=== PATIENT | male | born 1980 | race Caucasian/White ===

== ENCOUNTER → 2016-03-30 | Outpatient (CLI) | payer OTHER ==
--- NOTE | 2016-03-30 22:48 | REP ---
LUMBAR SPINE, FIVE VIEWS: HISTORY: Back pain. There is no acute fracture or subluxation. The L2-3 through L4-5 intervertebral discs are decreased in height consistent with disc degeneration. Osteophytes are present on L2 and L3. The facet joints are normal in appearance. IMPRESSION: Degenerative change as described above. Signed by Yuriy Flower MD 03/31/2016 08:20 A
== END ==
LOC: M WUC 18:50
PROVIDERS: ATTEND Physician Assistant
DX: M54.5 Low back pain (principal)

== ENCOUNTER → 2016-07-29 | Outpatient (REF) | payer OTHER ==
[~2016-07-29] MED LIST: KEFL500C7 PO; NAPR500T PO; TERB250T57 PO
== END ==
LOC: M LAB REF 15:00
PROVIDERS: ATTEND Surgery
DX: D17.21 Benign lipomatous neoplasm of skin and subcutaneous tissue of right arm (principal); D17.23 Benign lipomatous neoplasm of skin and subcutaneous tissue of right leg

== ENCOUNTER 2016-08-01 10:51 | Emergency (ER) | payer OTHER ==
[~2016-08-01] VITALS: Ht 177.8 cm; Wt 103.0 kg
[2016-08-01 10:52] VITALS: BP 144/81
[2016-08-01] MEDS ORDERED: TERB250T57 PO (11:01)
[2016-08-01] MEDS ORDERED: CEPHALEXIN 500 MG CAP PO ONE (11:30)
[2016-08-01] MEDS ORDERED: KEFL500C7 PO (11:38)
[2016-08-01] MEDS ORDERED: NAPR500T PO (11:38)
== END 2016-08-01 11:51 | disposition home or self-care (01) ==
LOC: M ED 11:30
DX: T81.31XA Disruption of external operation (surgical) wound, not elsewhere classified, initial encounter (principal); Y92.9 Unspecified place or not applicable; Y99.9 Unspecified external cause status; Y93.9 Activity, unspecified; X58.XXXA Exposure to other specified factors, initial encounter; D17.23 Benign lipomatous neoplasm of skin and subcutaneous tissue of right leg

== ENCOUNTER → 2017-09-22 | Outpatient (REF) | payer OTHER ==
[2017-09-22 12:58] LABS: BASO % 0.5 % (0.0-1.0); EOS # 0.1 10^3/uL (0.0-0.50); EOS % 1.2 % (0.0-3.0); HEMOGLOBIN 14.9 g/dl (13.5-17.5); IMMATURE GRANULOCYTE % 1.2 % (0-3.0); LYMPH # 1.8 10^3/uL (1.5-4.5); LYMPH % 30.6 % (24.0-44.0); MEAN CORPUSCULAR HEMOGLOBIN 30.2 pg (27.0-33.0); MEAN CORPUSCULAR HGB CONC 34.7 g/dl (32.0-36.5); MONO # 0.5 10^3/uL (0.0-0.8); MONO % 8.9 % (0.0-5.0); NEUTROPHILS # 3.3 10^3/uL (1.8-7.7); NEUTROPHILS % 57.6 % (36.0-66.0); PLATELET COUNT, AUTOMATED 296 10^3/uL (150-450); RED BLOOD COUNT 4.94 10^6/uL (4.30-6.10); RED CELL DISTRIBUTION WIDTH 12.1 % (11.5-14.5); WHITE BLOOD COUNT 5.8 10^3/uL (4.0-10.0)
[2017-09-22 13:41] LABS: ALBUMIN 3.5 GM/DL (3.2-5.2); ALBUMIN/GLOBULIN RATIO 0.92 (1.00-1.93); ALKALINE PHOSPHATASE 67 U/L (45-117); ALT/SGPT 46 U/L (12-78); ANION GAP 7 MEQ/L (8-16); AST/SGOT 20 U/L (7-37); BILIRUBIN,TOTAL 0.4 MG/DL (0.2-1.0); BLOOD UREA NITROGEN 15 MG/DL (7-18); CALCIUM LEVEL 8.4 MG/DL (8.5-10.1); CARBON DIOXIDE LEVEL 30 MEQ/L (21-32); CHLORIDE LEVEL 107 MEQ/L (98-107); CREATININE FOR GFR 0.99 MG/DL (0.70-1.30); GLOMERULAR FILTRATION RATE > 60.0 (>60); GLUCOSE, FASTING 95 MG/DL (70-100); LIPASE 130 U/L (73-393); POTASSIUM SERUM 4.4 MEQ/L (3.5-5.1); SODIUM LEVEL 144 MEQ/L (136-145); TOTAL PROTEIN 7.3 GM/DL (6.4-8.2)
== END ==
LOC: M LAB REF 12:44
DX: R11.0 Nausea (principal); R10.9 Unspecified abdominal pain; R19.7 Diarrhea, unspecified

== ENCOUNTER → 2018-08-04 | Outpatient (REF) | payer OTHER ==
[~2018-08-04] MED LIST changes: +KEFL500C17 PO; -KEFL500C7 PO; +NAPR-837 PO; -NAPR500T PO; +TERB250T12 PO; -TERB250T57 PO
[2018-08-04 13:16] LABS: BASO % 0.8 % (0.0-1.0); EOS # 0.1 10^3/uL (0.0-0.50); EOS % 1.5 % (0.0-3.0); HEMATOCRIT 43.7 % (42.0-52.0); HEMOGLOBIN 14.8 g/dl (13.5-17.5); LYMPH # 1.5 10^3/uL (1.5-4.5); LYMPH % 37.6 % (24.0-44.0); MEAN CORPUSCULAR HEMOGLOBIN 29.8 pg (27.0-33.0); MEAN CORPUSCULAR HGB CONC 33.9 g/dl (32.0-36.5); MEAN CORPUSCULAR VOLUME 88.1 fl (80.0-96.0); MONO # 0.4 10^3/uL (0.0-0.8); MONO % 11.2 % (0.0-5.0); NEUTROPHILS # 1.9 10^3/uL (1.8-7.7); NEUTROPHILS % 48.6 % (36.0-66.0); PLATELET COUNT, AUTOMATED 220 10^3/uL (150-450); RED BLOOD COUNT 4.96 10^6/uL (4.30-6.10); WHITE BLOOD COUNT 3.9 10^3/uL (4.0-10.0)
[2018-08-04 13:49] LABS: ALBUMIN 3.8 GM/DL (3.2-5.2); ALT/SGPT 30 U/L (12-78); BLOOD UREA NITROGEN 14 MG/DL (7-18); CALCIUM LEVEL 9.1 MG/DL (8.5-10.1); CARBON DIOXIDE LEVEL 27 MEQ/L (21-32); CHLORIDE LEVEL 107 MEQ/L (98-107); CHOLESTEROL LEVEL 175 MG/DL (<200); CHOLESTEROL RISK RATIO 3.571 (<5); CREATININE FOR GFR 1.18 MG/DL (0.70-1.30); GLOMERULAR FILTRATION RATE > 60.0 (>60); GLUCOSE, FASTING 90 MG/DL (70-100); HDL CHOLESTEROL 49 MG/DL (>40); LDL CHOLESTEROL 115 MG/DL (<100); NON-HDL-C 126 MG/DL; POTASSIUM SERUM 4.1 MEQ/L (3.5-5.1); SODIUM LEVEL 139 MEQ/L (136-145); TOTAL PROTEIN 7.4 GM/DL (6.4-8.2); TRIGLYCERIDES LEVEL 56 MG/DL (<150)
== END ==
LOC: M LAB REF 12:25
PROVIDERS: ATTEND Family Medicine Addiction Medicine
DX: Z00.01 Encounter for general adult medical examination with abnormal findings (principal)

== ENCOUNTER 2022-04-01 16:27 | Inpatient (IN) | payer OTHER, SELFPAY ==
[~2022-04-01] VITALS: Ht 177.8 cm; Wt 105.8 kg
[~2022-04-01 16:27] MED LIST changes: -TERB250T12 PO; +TERB250T91 PO
[2022-04-01] MEDS ORDERED: ISOVUE-370 76% 100ML VIAL As Ordered ONE (16:55)
[2022-04-01 17:11] LABS: BASO % 0.5 % (0.0-1.0); EOS # 0.1 10^3/uL (0.0-0.5); HEMOGLOBIN 14.2 g/dl (13.5-17.5); LYMPH # 2.5 10^3/uL (1.5-5.0); LYMPH % 34.1 % (24.0-44.0); MEAN CORPUSCULAR HEMOGLOBIN 30.3 pg (27.0-33.0); MEAN CORPUSCULAR VOLUME 91.9 fl (80.0-96.0); MONO # 0.6 10^3/uL (0.0-0.8); MONO % 8.6 % (2.0-8.0); NEUTROPHILS # 4.1 10^3/uL (1.5-8.5); NEUTROPHILS % 55.5 % (36.0-66.0); PLATELET COUNT, AUTOMATED 250 10^3/uL (150-450); RED BLOOD COUNT 4.68 10^6/uL (4.30-6.10); WHITE BLOOD COUNT 7.4 10^3/uL (4.0-10.0)
[2022-04-01] MEDS ORDERED: NS 1,000 ML IV ONE (17:15)
[2022-04-01] MEDS: HYDROMORPHONE HCL 0.5 MG/ 0.5 ML SYRINGE IV PRN ×2 (17:21→18:14)
[2022-04-01 17:24] LABS: INR 0.95; PROTHROMBIN TIME 12.9 SECONDS (12.5-14.5)
[2022-04-01 17:25] LABS: PARTIAL THROMBOPLASTIN TIME 22.9 SECONDS (24.8-34.2)
[2022-04-01 17:26] LABS: ALBUMIN 3.8 G/DL (3.2-5.2); BILIRUBIN,DIRECT 0.1 MG/DL (<0.4); BILIRUBIN,TOTAL 0.4 MG/DL (0.3-1.2); MB/CK RELATIVE INDEX 0.72 (< OR =4); TOTAL PROTEIN 6.8 G/DL (5.7-8.2)
[2022-04-01 17:39] LABS: RSV AMPLIFICATION NEGATIVE (NEGATIVE)
[2022-04-01] MEDS ORDERED: KETOROLAC 30 MG/ML 1ML VIAL IV ONE (18:05)
[2022-04-01] MEDS ORDERED: HOME MED LIST COMPLETE! XX SCH (18:35)
[2022-04-01] MEDS ORDERED: ONDANSETRON 4MG 2ML VIAL As Ordered ONE (18:54)
[2022-04-01] MEDS ORDERED: ONDANSETRON 4MG 2ML VIAL IV ONE (19:05)
[2022-04-01] MEDS ORDERED: MORPHINE 4 MG/ML 1ML VIAL IV PRN (20:05)
[2022-04-01] MEDS ORDERED: MOM 30ML SUSPENSION UDC PO PRN (20:05)
[2022-04-01] MEDS: NORCO, ANEXSIA 5/325MG TABLET (HYDROcodone/ACETAMINOPHEN) PO PRN (20:29)
[2022-04-01] MEDS: SENOKOT S TAB PO SCH (21:00)
[2022-04-01] MEDS: KETOROLAC 30 MG/ML 1ML VIAL IV PRN (21:41)
[2022-04-01] MEDS: MORPHINE 2 MG/ML 1ML VIAL IV PRN (22:43)
[2022-04-02] MEDS: NORCO, ANEXSIA 5/325MG TABLET (HYDROcodone/ACETAMINOPHEN) PO PRN ×3 (02:10→18:56)
[2022-04-02 08:22] LABS: HEMATOCRIT 41.5 % (42.0-52.0); HEMOGLOBIN 13.8 g/dl (13.5-17.5); MEAN CORPUSCULAR HEMOGLOBIN 30.6 pg (27.0-33.0); MEAN CORPUSCULAR HGB CONC 33.3 g/dl (32.0-36.5); PLATELET COUNT, AUTOMATED 200 10^3/uL (150-450); RED BLOOD COUNT 4.51 10^6/uL (4.30-6.10); WHITE BLOOD COUNT 11.3 10^3/uL (4.0-10.0)
[2022-04-02] MEDS: PANTOPRAZOLE 40MG TAB (PROTONIX) PO SCH (08:49)
[2022-04-02] MEDS: SENOKOT S TAB PO SCH ×2 (08:57→19:52)
[2022-04-02 09:00] LABS: ALBUMIN 3.2 G/DL (3.2-5.2); ALKALINE PHOSPHATASE 50 U/L (46-116); ALT/SGPT 96 U/L (7.0-40); AST/SGOT 83 U/L (<34); BILIRUBIN,TOTAL 0.6 MG/DL (0.3-1.2); BLOOD UREA NITROGEN 18 MG/DL (9-23); CALCIUM LEVEL 8.5 MG/DL (8.5-10.1); CARBON DIOXIDE LEVEL 27 MMOL/L (20-31); CHLORIDE LEVEL 106 MMOL/L (98-107); CREATININE FOR GFR 1.12 MG/DL (0.70-1.30); GLOMERULAR FILTRATION RATE > 60.0 (>60); GLUCOSE, FASTING 115 MG/DL (60-100); POTASSIUM SERUM 4.4 MMOL/L (3.5-5.1); SODIUM LEVEL 140 MMOL/L (136-145); TOTAL PROTEIN 6.2 G/DL (5.7-8.2)
[2022-04-02] MEDS: KETOROLAC 30 MG/ML 1ML VIAL IV PRN ×2 (10:34→19:52)
[2022-04-02] MEDS: MORPHINE 2 MG/ML 1ML VIAL IV PRN (10:35)
[2022-04-02 13:30] VITALS: BP 99/69
[2022-04-02 21:37] VITALS: BP 103/66
[2022-04-02] MEDS: ACETAMINOPHEN TAB 650MG DOSE (2X325MG) PO PRN (22:04)
[2022-04-03] MEDS: NORCO, ANEXSIA 5/325MG TABLET (HYDROcodone/ACETAMINOPHEN) PO PRN (02:33)
[2022-04-03] MEDS: KETOROLAC 30 MG/ML 1ML VIAL IV PRN (03:15)
[2022-04-03 06:10] VITALS: BP 105/54
[2022-04-03] MEDS: ONDANSETRON 4MG 2ML VIAL IV PRN ×3 (08:11→21:01)
[2022-04-03] MEDS: ACETAMINOPHEN TAB 650MG DOSE (2X325MG) PO PRN (08:16)
[2022-04-03] MEDS: SENOKOT S TAB PO SCH ×2 (08:16→20:55)
[2022-04-03] MEDS: PANTOPRAZOLE 40MG TAB (PROTONIX) PO SCH (08:16)
[2022-04-03] MEDS ORDERED: PERCOCET 5MG/325MG TAB PO PRN (08:20)
[2022-04-03] MEDS ORDERED: MIRALAX *UNIT DOSE* 17GM PACKET PO PRN (08:25)
[2022-04-03] MEDS: MORPHINE 2 MG/ML 1ML VIAL IV PRN ×2 (08:27→14:46)
[2022-04-03] MEDS: ENOXAPARIN 40MG/0.4ML SYRINGE (J1650 PER 10MG) SC SCH (09:00)
[2022-04-03] MEDS: PERCOCET 5MG/325MG TAB PO PRN ×2 (12:47→20:56)
[2022-04-03 14:00] VITALS: BP 123/77
[2022-04-03] MEDS ORDERED: MORPHINE 4 MG/ML 1ML VIAL IV PRN (16:05)
[2022-04-03] MEDS ORDERED: LACTULOSE 20GM/30ML SYRUP UDC PO PRN (21:30)
[2022-04-03 22:00] VITALS: BP 122/73
[2022-04-04] MEDS: ACETAMINOPHEN TAB 650MG DOSE (2X325MG) PO PRN (04:46)
[2022-04-04 06:00] VITALS: BP 115/71
[2022-04-04 08:30] LABS: BASO % 0.3 % (0.0-1.0); EOS % 0.4 % (0.0-3.0); HEMOGLOBIN 12.8 g/dl (13.5-17.5); LYMPH # 1.5 10^3/uL (1.5-5.0); LYMPH % 15.5 % (24.0-44.0); MEAN CORPUSCULAR HGB CONC 32.8 g/dl (32.0-36.5); MEAN CORPUSCULAR VOLUME 91.5 fl (80.0-96.0); MONO # 0.8 10^3/uL (0.0-0.8); NEUTROPHILS # 7.1 10^3/uL (1.5-8.5); NEUTROPHILS % 75.3 % (36.0-66.0); PLATELET COUNT, AUTOMATED 170 10^3/uL (150-450); RED BLOOD COUNT 4.26 10^6/uL (4.30-6.10); WHITE BLOOD COUNT 9.4 10^3/uL (4.0-10.0)
[2022-04-04] MEDS: ENOXAPARIN 40MG/0.4ML SYRINGE (J1650 PER 10MG) SC SCH (09:00)
[2022-04-04] MEDS: PANTOPRAZOLE 40MG TAB (PROTONIX) PO SCH (09:47)
[2022-04-04] MEDS: SENOKOT S TAB PO SCH (09:47)
[2022-04-04] MEDS ORDERED: PERCOCET PO ×2 (10:27→11:43)
[2022-04-04] MEDS ORDERED: ACET1TAB55 PO (10:27)
== END 2022-04-04 12:20 | disposition home or self-care (01) | DRG 135 ==
LOC: EDBD 16:27 → M ED 16:27 → M ED INP 18:24 → ENRESERV 04-02 12:36 → M MS5PR 04-02 13:25
PROVIDERS: ADMIT Surgery; ATTEND Surgery
DX: S22.22XA Fracture of body of sternum, initial encounter for closed fracture (principal); S22.42XA Multiple fractures of ribs, left side, initial encounter for closed fracture; R52 Pain, unspecified; V89.2XXA Person injured in unspecified motor-vehicle accident, traffic, initial encounter

== ENCOUNTER → 2022-04-21 | Outpatient (CLI) | payer OTHER ==
[~2022-04-21] MED LIST changes: +ACET1TAB55 PO; +PERCOCET PO
== END ==
LOC: M RAD 13:14
PROVIDERS: ATTEND Physician Assistant
DX: S80.12XA Contusion of left lower leg, initial encounter (principal)

== ENCOUNTER → 2022-04-29 | Outpatient (CLI) | payer OTHER | LOC: M PLAIMG 13:15 | PROVIDERS: ATTEND Physician Assistant | DX: M25.562 Pain in left knee (principal); M79.662 Pain in left lower leg ==

== ENCOUNTER → 2023-07-08 | Outpatient (CLI) | payer OTHER | LOC: M RAD 17:36 | PROVIDERS: ATTEND Nurse Practitioner Family | DX: S06.0X0A Concussion without loss of consciousness, initial encounter (principal); Y93.9 Activity, unspecified; Y92.9 Unspecified place or not applicable ==

== ENCOUNTER → 2023-07-09 | Outpatient (CLI) | payer OTHER ==
[2023-07-09 10:50] LABS: ALBUMIN 3.4 G/DL (3.2-5.2); ALKALINE PHOSPHATASE 58 U/L (46-116); ALT/SGPT 36 U/L (7.0-40); AST/SGOT 16 U/L (<34); BILIRUBIN,TOTAL 0.6 MG/DL (0.3-1.2); BLOOD UREA NITROGEN 15 MG/DL (9-23); CALCIUM LEVEL 9.5 MG/DL (8.5-10.1); CARBON DIOXIDE LEVEL 30 MMOL/L (20-31); CHLORIDE LEVEL 107 MMOL/L (98-107); CHOLESTEROL LEVEL 202 MG/DL (<200); CHOLESTEROL RISK RATIO 4.43 (<5); CREATININE FOR GFR 1.03 MG/DL (0.70-1.30); GLOMERULAR FILTRATION RATE > 60.0 (>60); GLUCOSE, FASTING 91 MG/DL (60-100); HDL CHOLESTEROL 45.5 MG/DL (>40); LDL CHOLESTEROL 131.9 MG/DL (<100); NON-HDL-C 156.5 MG/DL; POTASSIUM SERUM 4.6 MMOL/L (3.5-5.1); SODIUM LEVEL 140 MMOL/L (136-145); TRIGLYCERIDES LEVEL 123 MG/DL (<150)
[2023-07-09 10:51] LABS: THYROID STIMULATING HORMONE 3.145 uIU/ML (0.55-4.78)
== END ==
LOC: M LAB 09:22
PROVIDERS: ATTEND Nurse Practitioner Family
DX: I10 Essential (primary) hypertension (principal)

== ENCOUNTER → 2024-08-13 | Outpatient (CLI) | payer OTHER | LOC: M RAD 07:27 | PROVIDERS: ATTEND Nurse Practitioner Family | DX: D17.1 Benign lipomatous neoplasm of skin and subcutaneous tissue of trunk (principal); D17.24 Benign lipomatous neoplasm of skin and subcutaneous tissue of left leg ==

== ENCOUNTER → 2025-01-11 | Outpatient (REF) | payer OTHER ==
[2025-01-11 18:36] LABS: ESTIMATED AVERAGE GLUCOSE 105.0 MG/DL (60-110)
[2025-01-11 18:42] LABS: ALT/SGPT 43 U/L (7.0-40); AST/SGOT 37 U/L (<34); CALCIUM LEVEL 9.3 MG/DL (8.5-10.1); CARBON DIOXIDE LEVEL 30 MMOL/L (20-31); CHLORIDE LEVEL 103 MMOL/L (98-107); CHOLESTEROL LEVEL 216 MG/DL (<200); CHOLESTEROL RISK RATIO 3.71 (<5); CREATININE FOR GFR 1.02 MG/DL (0.70-1.30); GLOMERULAR FILTRATION RATE > 90.0 (>60); LDL CHOLESTEROL 139.3 MG/DL (<100); NON-HDL-C 157.9 MG/DL; POTASSIUM SERUM 4.1 MMOL/L (3.5-5.1); SODIUM LEVEL 142 MMOL/L (136-145); TRIGLYCERIDES LEVEL 93 MG/DL (<150)
== END ==
LOC: M LAB REF 17:35
PROVIDERS: ATTEND Nurse Practitioner Family
DX: E78.5 Hyperlipidemia, unspecified (principal); E66.9 Obesity, unspecified; I10 Essential (primary) hypertension

== ENCOUNTER 2025-02-13 07:36 | Day surgery (SDC) | payer OTHER ==
[~2025-02-13] VITALS: Ht 177.8 cm; Wt 95.1 kg
[2025-02-13] MEDS ORDERED: LIDOCAINE 2% 100 MG/5 ML SDV (FOR ANES.) As Ordered ONE (08:39)
[2025-02-13 08:45] VITALS: TEMP 96.9
[2025-02-13 09:00] VITALS: BP 124/72; O2SAT 99
== END 2025-02-13 09:09 | disposition home or self-care (01) ==
LOC: M OPP 07:36
PROVIDERS: ATTEND Surgery
DX: Z12.11 Encounter for screening for malignant neoplasm of colon (principal); K64.0 First degree hemorrhoids